=== PATIENT | female | born 1965 | race Caucasian/White ===

== ENCOUNTER 2019-05-31 06:24 | Inpatient (IN) | payer OTHER | END 2019-06-01 16:46 | disposition home or self-care (01) | DRG 580 | LOC: CIR.AMB 06:24 → EDBD 09:00 → CIR.AMB 09:00 → OB/GYN 18:23 → CIR.AMB 20:15 → OB/GYN 06-01 16:46 | PROVIDERS: Plastic Surgery; ADMIT Surgery | PROC: 0HHT0NZ Insertion of Tissue Expander into Right Breast, Open Approach (ICD-10-PCS; 2019-05-31) | PROC: 0HSWXZZ Reposition Right Nipple, External Approach (ICD-10-PCS; 2019-05-31) | PROC: 07B50ZZ Excision of Right Axillary Lymphatic, Open Approach (ICD-10-PCS; principal; 2019-05-31 20:15) | PROC: 0HTT0ZZ Resection of Right Breast, Open Approach (ICD-10-PCS; 2019-05-31 20:15) | DX: D05.12 Intraductal carcinoma in situ of left breast (principal); C77.3 Secondary and unspecified malignant neoplasm of axilla and upper limb lymph nodes; Z90.11 Acquired absence of right breast and nipple ==

== ENCOUNTER 2019-06-25 09:26 | Outpatient (CLI) | payer OTHER | END 2019-06-25 10:43 | disposition home or self-care (01) | LOC: NUCLEAR 09:26 | DX: I42.7 Cardiomyopathy due to drug and external agent (principal); C50.811 Malignant neoplasm of overlapping sites of right female breast ==

== ENCOUNTER 2021-09-03 05:25 | Day surgery (SDC) | payer OTHER | END 2021-09-03 13:40 | disposition home or self-care (01) | LOC: CIR.AMB 05:25 | PROVIDERS: ATTEND Plastic Surgery | DX: C50.911 Malignant neoplasm of unspecified site of right female breast (principal); N64.81 Ptosis of breast; Z42.1 Encounter for breast reconstruction following mastectomy; Z92.21 Personal history of antineoplastic chemotherapy; Z20.822 Contact with and (suspected) exposure to COVID-19 | CPT/HCPCS: 11970; 19318; C1789 ==

== ENCOUNTER 2022-12-09 05:45 | Day surgery (SDC) | payer OTHER ==
[~2022-12-09] VITALS: Ht 162.6 cm; Wt 62.1 kg
== END 2022-12-09 13:50 | disposition home or self-care (01) ==
LOC: CIR.AMB 05:45
PROVIDERS: ATTEND Plastic Surgery
DX: N65.1 Disproportion of reconstructed breast (principal); Z90.11 Acquired absence of right breast and nipple; Z20.822 Contact with and (suspected) exposure to COVID-19; C50.411 Malignant neoplasm of upper-outer quadrant of right female breast